=== PATIENT | male | born 1955 | race Caucasian/White ===

== ENCOUNTER 2018-12-23 09:00 | Observation (INO) | payer OTHER ==
[~2018-12-23] VITALS: Ht 160 cm; Wt 69.2 kg
[~2018-12-23 09:00] MED LIST: GABAPENTIN300 MG PO; TRAMADOL HCL50 MG PO; VIAGRA25 MG PO
[2018-12-23 09:33] LABS: HEMATOCRIT 42.5 % (39.0-50.0); HEMOGLOBIN 13.8 g/dl (14.0-18.0); IMMATURE GRANULOCYTES 0.3 % (0.0-5.0); MEAN CELL VOLUME 92.8 fL CALC (80.0-100.0); MEAN CORPUSCULAR HGB 30.1 pG CALC (26.0-32.0); MEAN CORPUSCULAR HGB CONC 32.5 g/L CALC (32.0-36.0); NEUT# 8.67 thou/uL (1.82-7.42); RED BLOOD COUNT 4.58 mill/uL (4.70-6.10); RED CELL DISTRI WIDTH 13.3 % (11.5-15.5)
[2018-12-23] MEDS ORDERED: NORVASC5 M1 PO (09:42)
[2018-12-23] MEDS ORDERED: ASPIRIN 81 LOW81 MG PO (09:43)
[2018-12-23] MEDS ORDERED: ATORVASTATIN CA40 MG PO (09:43)
[2018-12-23] MEDS ORDERED: ZOLOFT50 MG PO (09:44)
[2018-12-23] MEDS ORDERED: TAMSULOSIN HCL0.4 MG PO (09:44)
[2018-12-23] MEDS ORDERED: CLOPIDOGREL75 MG PO (09:44)
[2018-12-23 09:46] LABS: ALBUMIN 4.6 g/dL (3.2-5.0); ALKALINE PHOSPHATASE 55 u/l (38-126); AMYLASE 65 u/l (30-110); ANION GAP 14 (6-22 (CALC)); BILIRUBIN, TOTAL 0.5 mg/dL (0.0-1.4); BUN 12 mg/dL (8-23); BUN/CREATININE RATIO 18 (12-20 (CALC)); CARBON DIOXIDE 26 mmol/l (22-30); CHLORIDE 104 mmol/l (95-108); CREATININE 0.7 mg/dL (0.7-1.3); GFR > 60 ML/MIN (>=60 (CALC)); GFR FOR AFR.AMER. > 60 ML/MIN (>=60 (CALC)); LIPASE 36 u/l (23-300); POTASSIUM 3.8 mmol/l (3.5-5.1); SGOT/AST 30 u/l (19-48); SODIUM 139 mmol/l (137-146)
[2018-12-23 09:53] LABS: ACT PARTIAL THROMBO TIME 25.2 SECONDS (20.0-32.5); D-DIMER 0.17 mg/L (0.19-0.60); INTERNATIONAL NORMALIZED RATIO 0.9 RATIO (0.7-1.3); PROTHROMBIN TIME 9.7 SECONDS (9.0-12.5)
[2018-12-23 09:57] LABS: MYOGLOBIN 23 ng/mL (0 - 121)
[2018-12-23 12:04] VITALS: BP 132/84
[2018-12-23 20:00] VITALS: BP 107/63
[2018-12-24 00:51] VITALS: BP 112/69
[2018-12-24 03:59] VITALS: BP 109/64
[2018-12-24 06:37] LABS: CHOLESTEROL HDL RATIO 2.5 (<4.4 (CALC)); MAGNESIUM 2.1 mg/dL (1.6-2.3)
[2018-12-24 08:35] VITALS: BP 118/77
[2018-12-24 09:52] LABS: HEMATOCRIT 42.2 % (39.0-50.0); HEMOGLOBIN 13.6 g/dl (14.0-18.0); IMMATURE GRANULOCYTES 0.3 % (0.0-5.0); MEAN CELL VOLUME 92.7 fL CALC (80.0-100.0); MEAN CORPUSCULAR HGB 29.9 pG CALC (26.0-32.0); MEAN CORPUSCULAR HGB CONC 32.2 g/L CALC (32.0-36.0); NEUT# 6.23 thou/uL (1.82-7.42); RED BLOOD COUNT 4.55 mill/uL (4.70-6.10); RED CELL DISTRI WIDTH 13.9 % (11.5-15.5)
[2018-12-24 11:02] VITALS: BP 119/71
[2018-12-24] MEDS ORDERED: PANTOPRAZOLE SO40 M1 PO (11:32)
== END 2018-12-24 12:28 | disposition home or self-care (01) | DRG 313 ==
LOC: ED 09:00 → ED-I 10:17 → ED 10:30 → MS2 10:31
PROVIDERS: Family Medicine; Nurse Practitioner Family; ADMIT Internal Medicine; ATTEND Internal Medicine
DX: R07.9 Chest pain, unspecified (principal); I10 Essential (primary) hypertension; I25.10 Atherosclerotic heart disease of native coronary artery without angina pectoris; R12 Heartburn; Z95.5 Presence of coronary angioplasty implant and graft; Z87.891 Personal history of nicotine dependence; Z85.46 Personal history of malignant neoplasm of prostate
CPT/HCPCS: G0378

== ENCOUNTER 2019-02-03 11:54 | Emergency (ER) | payer OTHER ==
[~2019-02-03] VITALS: Ht 160 cm; Wt 55.0 kg
[~2019-02-03 11:54] MED LIST changes: +ASPIRIN 81 LOW81 MG PO; +ATORVASTATIN CA40 MG PO; +CLOPIDOGREL75 MG PO; +NORVASC5 M1 PO; +PANTOPRAZOLE SO40 M1 PO; +TAMSULOSIN HCL0.4 MG PO; +ZOLOFT50 MG PO
[2019-02-03 13:05] LABS: HEMATOCRIT 37.9 % (39.0-50.0); HEMOGLOBIN 12.1 g/dl (14.0-18.0); IMMATURE GRANULOCYTES 0.4 % (0.0-5.0); MEAN CELL VOLUME 93.6 fL CALC (80.0-100.0); MEAN CORPUSCULAR HGB 29.9 pG CALC (26.0-32.0); MEAN CORPUSCULAR HGB CONC 31.9 g/L CALC (32.0-36.0); NEUT# 3.62 thou/uL (1.82-7.42); RED BLOOD COUNT 4.05 mill/uL (4.70-6.10); RED CELL DISTRI WIDTH 13.4 % (11.5-15.5)
[2019-02-03 13:20] LABS: ALBUMIN 4.7 g/dL (3.2-5.0); ALKALINE PHOSPHATASE 63 u/l (38-126); ANION GAP 15 (6-22 (CALC)); BILIRUBIN, TOTAL 0.4 mg/dL (0.0-1.4); BUN 13 mg/dL (8-23); BUN/CREATININE RATIO 22 (12-20 (CALC)); CARBON DIOXIDE 27 mmol/l (22-30); CHLORIDE 103 mmol/l (95-108); CREATININE 0.6 mg/dL (0.7-1.3); GFR > 60 ML/MIN (>=60 (CALC)); GFR FOR AFR.AMER. > 60 ML/MIN (>=60 (CALC)); SGOT/AST 23 u/l (19-48); SODIUM 141 mmol/l (137-146); TOTAL PROTEIN 8.1 g/dL (6.3-8.2)
[2019-02-03 13:54] LABS: URINE BILIRUBIN - DIPSTICK NEGATIVE (NEGATIVE); URINE BLOOD DIPSTICK MODERATE (NEGATIVE); URINE COLOR YELLOW; URINE GLUCOSE - DIPSTICK NEGATIVE (NEGATIVE); URINE KETONE NEGATIVE (NEGATIVE); URINE LEUK ESTERASE NEGATIVE (NEGATIVE); URINE NITRITE - DIPSTICK NEGATIVE (Negative); URINE PROTEIN - DIPSTICK NEGATIVE (NEG-TRACE); URINE SPECIFIC GRAVITY 1.025; URINE UROBILINOGEN - DIPSTICK 0.2 E.U./dL (0.2)
[2019-02-03 13:58] LABS: URINE WBC 0-2 WBC/hpf (0-5)
[2019-02-03 14:48] VITALS: BP 117/68
== END 2019-02-03 14:48 | disposition home or self-care (01) | DRG 948 ==
LOC: ED 11:54
DX: R60.0 Localized edema (principal); I10 Essential (primary) hypertension; C61 Malignant neoplasm of prostate